=== PATIENT | female | born 1955 | race Caucasian/White ===

== ENCOUNTER 2017-05-14 10:34 | Emergency (ER) | payer BC ==
[~2017-05-14] VITALS: Ht 170.2 cm; Wt 98.1 kg
[2017-05-14 11:44] LABS: HEMATOCRIT 43.2 % (36.0-46.0); MCH 31.7 PG (29.0-34.0); MCHC 33.8 G/DL (30.0-36.0); MCV 93.9 FL (83-99); MEAN PLAT.VOLUME 10.7 uM^3 (9.5-12.4); PLATELET COUNT 199 K/uL (156-360); RBC DIS.WIDTH-SD 41.9 % (39-53); WHITE BLOOD COUNT 11.2 K/uL (4.1-10.2)
[2017-05-14 11:58] LABS: CHLORIDE 107 mEq/L (99-109); POTASSIUM 4.1 mEq/L (3.7-5.4); SODIUM 139 mEq/L (136-147)
[2017-05-14 12:00] LABS: GLUCOSE 107 mg/dL (70-99)
[2017-05-14 12:01] LABS: ANION GAP 10 MEQ/L (2-14)
[2017-05-14 12:02] LABS: TOTAL BILIRUBIN 0.5 mg/dL (0.0-1.0)
[2017-05-14 12:03] LABS: ALKALINE PHOSPHATASE 81 IU/L (3-129)
[2017-05-14 12:04] LABS: GFR ESTIMATE (CALCULATED) > 59 mL/min/
[2017-05-14 12:05] LABS: ERTH.SED.RATE 17 MM/HR (0-30); UREA NITROGEN (BUN) 26 mg/dL (9-23)
[2017-05-14 12:38] LABS: C-REACTIVE PROTEIN 27.5 MG/L (0-10)
[2017-05-14] MEDS ORDERED: ATARAX,VISTARIL25 MG PO (13:25)
[2017-05-14] MEDS ORDERED: PEPCID40 MG PO (13:25)
[2017-05-14] MEDS ORDERED: MEDROL DOSEPAK4 MG PO (13:25)
[2017-05-14 14:00] VITALS: BP 147/77
== END 2017-05-14 14:55 | disposition home or self-care (01) ==
LOC: EME 10:34
PROVIDERS: Nurse Practitioner Family
DX: L50.0 Allergic urticaria (principal); Z88.0 Allergy status to penicillin
CPT/HCPCS: 80053; 85027; 85651; 86140; 99281; 99285; J2930; J7030; Q0177; S0028